=== PATIENT | female | born 1975 | race Caucasian/White ===

== ENCOUNTER 2018-09-28 13:32 | Emergency (ER) | payer MEDICAID ==
[2018-09-28] MEDS: IBUPROFEN 200 MG TAB PO (15:25)
[2018-09-28] MEDS: ACETAMINOPHEN 325 MG TAB PO (15:25)
== END 2018-09-28 16:36 | disposition home or self-care (01) ==
LOC: FTE 13:32
DX: L02.811 Cutaneous abscess of head [any part, except face] (principal); E11.9 Type 2 diabetes mellitus without complications
CPT/HCPCS: 99283; Z7502